=== PATIENT | female | born 2005 | race Two or more races ===

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

== ENCOUNTER 2024-04-17 13:01 | Emergency (ER) | payer MEDICAID ==
[~2024-04-17] VITALS: Ht 165.1 cm; Wt 60.8 kg
[~2024-04-17 13:01] MED LIST changes: +POLY10DR OP
[2024-04-17 13:05] VITALS: TEMP 97.5
--- NOTE | 2024-04-17 13:10 | NUR ---
N/V X 2 DAYS
--- NOTE | 2024-04-17 14:35 | NUR ---
UA sent to lab
[2024-04-17] MEDS ORDERED: ONDANSETRON 4 MG TAB.RAPDIS ONE (14:51)
[2024-04-17] MEDS ORDERED: LIDOCAINE VISCOUS 2% UD 15 ML UDC ONE (14:51)
[2024-04-17] MEDS ORDERED: MAG HYDROX/AL HYDROX/SIMETH 30 ML UDC ONE (14:51)
[2024-04-17] MEDS: LIDOCAINE VISCOUS 2% UD 15 ML UDC MM ONE (14:54)
[2024-04-17] MEDS: ONDANSETRON 4 MG TAB.RAPDIS SL ONE (14:55)
[2024-04-17] MEDS: MAG HYDROX/AL HYDROX/SIMETH 30 ML UDC PO ONE (14:59)
[2024-04-17] MEDS ORDERED: ONDA4TAB11 PO (15:57)
[2024-04-17] MEDS ORDERED: MAG-55 PO (15:57)
[2024-04-17] MEDS ORDERED: PANT20TA2 PO (15:57)
--- NOTE | 2024-04-17 16:00 | NUR ---
Patient discharged to home in stable condition. Written and verbal after care instructions given. Patient verbalizes understanding of instruction.
[2024-04-17 16:01] VITALS: BP 118/75; O2SAT 100
== END 2024-04-17 16:01 | disposition home or self-care (01) ==
LOC: ER 13:11
DX: K29.20 Alcoholic gastritis without bleeding (principal); F10.10 Alcohol abuse, uncomplicated; R11.2 Nausea with vomiting, unspecified; R10.13 Epigastric pain; R53.83 Other fatigue; J45.909 Unspecified asthma, uncomplicated; Y90.9 Presence of alcohol in blood, level not specified
CPT/HCPCS: 99284; Q0162

== ENCOUNTER 2024-06-13 10:27 | Emergency (ER) | payer MEDICAID ==
[~2024-06-13] VITALS: Ht 165.1 cm; Wt 61.2 kg
[2024-06-13 10:27] VITALS: BP 112/69; TEMP 98.6
[~2024-06-13 10:27] MED LIST changes: +MAG-55 PO; +ONDA4TAB11 PO; +PANT20TA2 PO
[2024-06-13] MEDS ORDERED: DEXA4TAB68 PO (10:44)
[2024-06-13 10:55] VITALS: O2SAT 98
== END 2024-06-13 10:57 | disposition home or self-care (01) ==
LOC: ER 10:30
DX: J02.9 Acute pharyngitis, unspecified (principal); J45.909 Unspecified asthma, uncomplicated; Z79.52 Long term (current) use of systemic steroids; Z79.899 Other long term (current) drug therapy

== ENCOUNTER 2024-12-16 11:44 | Emergency (ER) | payer MEDICAID ==
[~2024-12-16] VITALS: Ht 165.1 cm; Wt 64.4 kg
[~2024-12-16 11:44] MED LIST changes: +DEXA4TAB68 PO
[2024-12-16] MEDS: IV NS 0.9% 1,000 ML BAG IV ONE (12:10)
[2024-12-16] MEDS ORDERED: ONDANSETRON HCL/PF 4 MG/2 ML VIAL ONE (12:11)
[2024-12-16] MEDS ORDERED: KETOROLAC TROMETHAMINE 15 MG/ML VIAL ONE (12:11)
[2024-12-16] MEDS: KETOROLAC TROMETHAMINE 15 MG/ML VIAL IV ONE (12:14)
[2024-12-16] MEDS: ONDANSETRON HCL/PF 4 MG/2 ML VIAL IVP ONE (12:14)
[2024-12-16 12:18] LABS: APPEARANCE,URINE CLEAR (CLEAR); BILIRUBIN,URINE 2+ (NEGATIVE); BLOOD, URINE NEGATIVE Ery/uL (NEGATIVE); COLOR,URINE ORANGE (YELLOW); KETONES,URINE 3+ mg/dL (NEGATIVE); LEUKOCYTE ESTERASE ,URINE NEGATIVE (NEGATIVE); NITRITE, URINE NEGATIVE (NEGATIVE); PROTEIN,URINE 1+ mg/dl (NEGATIVE); UGLUCOSE TRACE mg/dL (NEGATIVE)
[2024-12-16 12:28] LABS: ALBUMIN 3.7 g/dL (3.4-5.0); BASOPHILS % (AUTO) 0.2 % (0.0-2.0); BILIRUBIN,DIRECT 1.2 mg/dL (0.0-0.2); BILIRUBIN,TOTAL 2.1 mg/dL (0.2-1.0); CALCIUM, SERUM 9.2 mg/dL (8.5-10.1); CREATININE 0.8 mg/dL (0.6-1.3); EOSINOPHILS # (AUTO) 0.1 K/uL (0.0-0.7); EOSINOPHILS % (AUTO) 1.7 % (0.0-6.0); HEMATOCRIT 42 % (33-45); HEMOGLOBIN 14.8 g/dL (11.5-14.8); LYMPHOCYTES # (AUTO) 0.6 K/uL (0.8-4.8); LYMPHOCYTES % (AUTO) 8.8 % (20.0-44.0); MEAN CORPUSCULAR HEMOGLOBIN 32 PG (26.0-33.0); MEAN CORPUSCULAR HGB CONC 35 g/dl (31.0-36.0); MEAN CORPUSCULAR VOLUME 91 fL (82-100); MONOCYTES # (AUTO) 0.5 K/uL (0.1-1.30); NEUTROPHILS # (AUTO) 5.4 K/uL (1.8-8.9); NEUTROPHILS % (AUTO) 82.3 % (43.0-81.0); PLATELET COUNT (AUTO) 155 K/uL (150-450); POTASSIUM 3.1 mmol/L (3.5-5.1); RED BLOOD CELL COUNT(AUTO) 4.68 MIL/uL (4.0-5.2); RED CELL DISTRIBUTION WIDTH 12.9 % (11.5-15.0); TOTAL PROTEIN, SERUM 8.3 g/dL (6.4-8.2); WHITE BLOOD COUNT (AUTO) 6.6 K/uL (4.3-11.0)
[2024-12-16 12:36] LABS: ADD URINE CULTURE YES; BACTERIA,URINE 1+ /HPF (None Seen)
[2024-12-16] MEDS ORDERED: DICY10CA37 PO (14:11)
[2024-12-16] MEDS ORDERED: ONDA4TAB11 PO (14:11)
[2024-12-16 14:25] VITALS: BP 105/62; TEMP 98.3; O2SAT 98
== END 2024-12-16 14:26 | disposition home or self-care (01) ==
LOC: ER 11:53
DX: R10.84 Generalized abdominal pain (principal); R11.2 Nausea with vomiting, unspecified; R74.01 Elevation of levels of liver transaminase levels; J45.909 Unspecified asthma, uncomplicated; Z79.52 Long term (current) use of systemic steroids; Z79.899 Other long term (current) drug therapy
CPT/HCPCS: 99285; 96374; 76705; 96361; 96375; 85025; 80048; 83690; 80076; 84703; 81001; 36415; J1885; J2405

== ENCOUNTER 2025-03-16 17:22 | Emergency (ER) | payer MEDICAID ==
[~2025-03-16] VITALS: Ht 165.1 cm; Wt 61.7 kg
[~2025-03-16 17:22] MED LIST changes: +DICY10CA37 PO
[2025-03-16 18:16] LABS: PLATELET COUNT (AUTO) 222 K/uL (150-450); RED BLOOD CELL COUNT(AUTO) 4.68 MIL/uL (4.0-5.2); RED CELL DISTRIBUTION WIDTH 12.8 % (11.5-15.0); WHITE BLOOD COUNT (AUTO) 14.7 K/uL (4.3-11.0)
[2025-03-16 18:24] LABS: CALCIUM, SERUM 9.3 mg/dL (8.5-10.1); CREATININE 0.8 mg/dL (0.6-1.3); SODIUM SERUM 137.0 mmol/L (136-145); UREA NITROGEN, BLOOD 5.0 mg/dL (7-18)
[2025-03-16 18:30] LABS: ASPARTATE AMINOTRANSFERASE 11.0 U/L (15-37); TOTAL PROTEIN, SERUM 8.0 g/dL (6.4-8.2)
[2025-03-16] MEDS ORDERED: KETOROLAC TROMETHAMINE INJ 30 MG/ML VIAL ONE (18:39)
[2025-03-16] MEDS ORDERED: ACETAMINOPHEN ES 500 MG TABLET ONE (18:39)
[2025-03-16] MEDS ORDERED: ONDANSETRON HCL/PF 4 MG/2 ML VIAL ONE (18:39)
[2025-03-16] MEDS: KETOROLAC TROMETHAMINE INJ 30 MG/ML VIAL IV ONE (18:46)
[2025-03-16] MEDS: ACETAMINOPHEN ES 500 MG TABLET PO ONE (18:47)
[2025-03-16] MEDS: ONDANSETRON HCL/PF - ER 4 MG/2 ML VIAL IV ONE (18:47)
[2025-03-16 18:50] LABS: APPEARANCE,URINE CLEAR (CLEAR); BLOOD, URINE Trace-intact Ery/uL (NEGATIVE); LEUKOCYTE ESTERASE ,URINE Negative (NEGATIVE); UGLUCOSE Negative (NEGATIVE)
[2025-03-16 18:52] LABS: ADD URINE CULTURE NO; NITRITE, URINE NEGATIVE (NEGATIVE); SQUAMOUS EPITHELIAL CELL,UR Few /HPF (None Seen)
[2025-03-16] MEDS ORDERED: ONDA4TAB11 PO (20:11)
[2025-03-16 20:41] VITALS: BP 106/65; TEMP 98.1; O2SAT 97
== END 2025-03-16 20:42 | disposition home or self-care (01) ==
LOC: ER 17:48
DX: R10.2 Pelvic and perineal pain (principal); R11.0 Nausea; F17.200 Nicotine dependence, unspecified, uncomplicated; J45.909 Unspecified asthma, uncomplicated; Z79.52 Long term (current) use of systemic steroids; Z79.899 Other long term (current) drug therapy
CPT/HCPCS: 99285; 96374; 76856; 96375; 85025; 80048; 87086; 83690; 80076; 81001; 36415; 84702; J1885; J2405 ×2